=== PATIENT | male | born 1995 | race Caucasian/White ===

== ENCOUNTER 2017-03-01 06:57 | Emergency (ER) | payer OTHER ==
[~2017-03-01] VITALS: Ht 177.8 cm; Wt 86.4 kg
[2017-03-01 06:59] VITALS: BP 124/88; PULSE 70; RESP 16; O2SAT 99
--- NOTE | 2017-03-01 07:42 | ED.REPORT ---
HPI-General Illness Date of Service Mar 01, 2017 ED Provider: Pradip Lewis MD This is a 21-year-old male with no known past medical history presents to emergency department for foreign body and left upper extremity. Patient reports at 5 AM when using a hammer, the hammer exploded and pieces of metal flew into his left forearm. Patient tried to remove the metal however it was too deep and he had profuse bleeding which he controlled with gauze. Currently he is having a constant 5 out of 10 ache with tingling into his palm more along the pinky side. He has not tried anything to alleviate pain. He has some swelling, but no numbness or weakness associated with this. Nothing is making it worse. He denies any fevers, chills, nausea, vomiting or any other pains. His last tetanus he thinks might have been when he was 14, but he is uncertain. He is uncertain of the metal was rusted or not. Nursing Notes Stated Complaint: METAL IN ARM/WORK RELATED Chief Complaint: Extremity Trauma Nursing Notes Reviewed: Yes Allergies: Coded Allergies: morphine (Verified Allergy, Intermediate, vomited, 03/01/17) Scheduled Cephalexin (Keflex) 500 Mg Capsule 500 MG PO QID General Time Seen by MD: 07:06 Chief Complaint Other (left upper extremity foreign body) Past Medical History Past Medical History None reported Past Surgical History None reported Smoking History Never Smoker Social History Alcohol Use: "Social" Drug Use: Cocaine (stopped in 2015.) Other Social History: Local resident Ambulatory Status Independent Review of Systems Full Review of Systems Constitutional: Denies: Chills, Fever Respiratory: Denies: Shortness of breath Cardiovascular: Denies: Chest pain GI: Denies: Nausea, Vomiting Musculoskeletal: Reports: Extremity pain, Extremity swelling, Denies: Joint pain, Joint swelling Hematologic: Reports Bleeding Skin: Reports Swelling Neurologic: Denies: Numbness Complete sys rev & neg: except as marked. Physical Exam Vital Signs Vital Signs Date Time Temp Pulse Resp B/P Pulse Ox O2 Delivery O2 Flow Rate FiO2 03/01/17 10:50 55 12 134/80 100 Room Air 03/01/17 09:44 55 12 134/80 100 Room Air 03/01/17 06:59 36.9 70 16 124/88 99 Initial VS: Reviewed General/Constitutional: Well-developed, Well-nourished Head / Eyes: Atraumatic, Normocephalic ENT: Mucous membranes moist, Conjunctiva normal Respiratory: Breath sounds normal, Clear to auscultation, No respiratory distress Cardiovascular: Regular rate & rhythm, Heart sounds normal General/Constitutional: Awake, Alert, No acute distress, Well appearing, Well developed, Cooperative, Not toxic appearing Respiratory / Chest: Breath sounds NL, Breath sounds = bilat, No respiratory distress Cardiovascular: Heart rate NL, Regular rhythm, Heart sounds NL, No murmurs Upper Extremities Upper Extremity / MS: Full range of motion Left Forearm: Positive: Swelling present... (Moderate), Tenderness present... ( Mild) Localized swelling to the left forearm about 1.5-2 inches in diameter with tenderness and same area. Puncture wound at left forearm with dry blood. Swelling is about 1-1/2 inches in diameter around the puncture site. Neurologic: Oriented X3, Speech NL Fine touch intact throughout the left forearm. Motor strength is 5 out of 5 and equal to right upper extremity strength. Range of motion is normal. 2 point discrimination mildly decreased in left anterior forearm and palm when compared to right forearm. Psychiatric: Affect NL, Mood NL Interpretation & Diagnostics X-Ray Interpretation Xray Interpretation: PROCEDURE: X-RAY LEFT FOREARM, TWO VIEWS ([id number]) IMPRESSION: No acute fractures or dislocations. Two radiopaque foreign bodies in the soft tissues at the radial aspect of the proximal left forearm measuring up 6 mm. Re-Eval/Medical Decision Med Decision/Clinical Course This is a 21-year-old male with no known past medical history pertinent for foreign body in left upper extremity. Patient did report paresthesias along the ulnar aspect, but did not have any weakness. On exam there is noticeable swelling and a puncture wound. He does have loss of 2 point discrimination along the anterior aspect of the forearm as well as into the palm when compared with the right forearm. There is no weakness noticed. An x-ray there are two 6 mm radiopaque foreign bodies seen along the radial aspect of the forearm. After discussion with orthopedics the recommendation was to clean and bandage the wound with follow-up in the outpatient clinic, along with antibiotics. Instructions were given for when to return to the emergency department. Keflex was prescribed for 10 days. L&I form was filled out. Consultation : Referral / Consult Name: Hiram Xie DO Chalk Cutter: Will see in office Note: Orthopedics recommended clean and bandage the wound, give antibiotics and further evaluation in the outpatient clinic. Counseled Regarding: Lab results, Need for follow-up, When/why to return to ED Discharge & Departure Primary Impression: Foreign body in left forearm Encounter type: initial encounter Qualified Code: S50.852A - Superficial foreign body of left forearm, initial encounter Disposition: Home Discharge Condition All VS Reviewed: Yes Condition: Stable Patient Instructions: Soft Tissue Foreign Body (ED) Additional Instructions: After discussion with the orthopedics team, they want you to see them in their clinic. Give them a call to schedule an appointment. If you start to notice increased swelling, numbness, significant pain, fevers or chills, return to the emergency department. There does not seem to be any sign of infection at this time. You were given a tetanus shot while you were here. We have also given you antibiotics to prevent infection. Take Keflex, 4 times a day for 10 days. Referrals: NOPCP (PCP) Hiram Xie DO Attending Statement I saw and evaluated the patient with the resident. I agree with the plan and findings as documented above. copies to: Hiram Xie William B MD Mar 01, 2017 07:42 Todd Del Castillo DO Mar 01, 2017 08:38
--- NOTE | 2017-03-01 08:17 | DRSVH ---
PROCEDURE: X-RAY LEFT FOREARM, TWO VIEWS ([id number]) INDICATIONS: LEFT ARM INJURY; FOREIGN BODY TECHNIQUE: 2 views of the forearm were acquired. COMPARISON: None. FINDINGS: Bones: No fractures or dislocations. No suspicious bony lesions. Soft tissues: No suspicious soft tissue calcifications or masses. There are 2 radiopaque calcified foreign bodies in the proximal radial soft tissues of the left forearm measuring up to 6 mm. IMPRESSION: No acute fractures or dislocations. Two radiopaque foreign bodies in the soft tissues at the radial aspect of the proximal left forearm measuring up 6 mm. Dictated by: Get Reeder M.D. on 03/01/2017 at 8:14 Approved by: Get Reeder M.D. on 03/01/2017 at 8:16
[2017-03-01] MEDS ORDERED: Tetanus Immune Globulin 250 Unit/mL Inj IM ONE (09:15)
[2017-03-01] MEDS ORDERED: TdaP Vaccine 0.5 mL Inj IM ONE (09:15)
[2017-03-01 09:44] VITALS: BP 134/80; PULSE 55; RESP 12; O2SAT 100
[2017-03-01] MEDS ORDERED: CEPH-512 PO (10:32)
[2017-03-01 10:50] VITALS: BP 134/80; PULSE 55; RESP 12; O2SAT 100
[2017-03-04] MEDS ORDERED: CEPH-512 PO (15:44)
== END 2017-03-01 10:51 | disposition home or self-care (01) ==
LOC: SED 06:57
DX: S51.822A Laceration with foreign body of left forearm, initial encounter (principal); Z79.2 Long term (current) use of antibiotics; Z23 Encounter for immunization; W45.8XXA Other foreign body or object entering through skin, initial encounter; Y93.89 Activity, other specified; Y99.0 Civilian activity done for income or pay; Y92.69 Other specified industrial and construction area as the place of occurrence of the external cause; Z88.5 Allergy status to narcotic agent

== ENCOUNTER 2017-03-01 11:48 | Emergency (ER) | payer OTHER ==
[~2017-03-01] VITALS: Ht 177.8 cm; Wt 86.4 kg
[~2017-03-01 11:48] MED LIST: CEPH-512 PO
[2017-03-01 11:57] VITALS: BP 141/73; PULSE 65; RESP 18; O2SAT 98
[2017-03-01 13:38] LABS: BASOPHILS % (AUTO) 0.3 % (0-3); EOSINOPHILS % (AUTO) 1.2 % (0-5); MONOCYTES % (AUTO) 9.3 % (4-12); Mean Corpuscular Hemoglobin 29.9 pg (27.0-35.0); NEUTROPHILS % (AUTO) 67.1 % (40-74); Platelet Count 248 bil/L (150-400)
[2017-03-01 14:04] LABS: INR 1.14 ratio
--- NOTE | 2017-03-01 14:13 | ED.REPORT ---
HPI-Extremity Problem Upper Date of Service Mar 01, 2017 ED Provider: Pradip Lewis MD This is a 21-year-old male with no known past medical history who was just seen in the ED 1 hour prior for left upper extremity foreign body. Previous history of present illness pasted below. He was previously found to have a 6 mm radiopaque object 2 in his left radial aspect of his forearm and was discharged home, stable, with follow-up with orthopedics. Patient returns to the ED after increased swelling and pain to the left upper extremity. Pain is now 7 out of 10 constant ache with similar paresthesia along the ulnar aspect to the palm. He reports still having good strength and no numbness. He still has full range of motion of his elbow, wrist and fingers. He denies any other changes in symptoms. "This is a 21-year-old male with no known past medical history presents to emergency department for foreign body and left upper extremity. Patient reports at 5 AM when using a hammer, the hammer exploded and pieces of metal flew into his left forearm. Patient tried to remove the metal however it was too deep and he had profuse bleeding which he controlled with gauze. Currently he is having a constant 5 out of 10 ache with tingling into his palm more along the pinky side. He has not tried anything to alleviate pain. He has some swelling, but no numbness or weakness associated with this. Nothing is making it worse. He denies any fevers, chills, nausea, vomiting or any other pains. His last tetanus he thinks might have been when he was 14, but he is uncertain. He is uncertain of the metal was rusted or not." Nursing Notes Stated Complaint: METAL IN ARM Chief Complaint: Extremity Trauma Nursing Notes Reviewed: Yes Allergies: Coded Allergies: morphine (Verified Allergy, Intermediate, vomited, 03/01/17) Scheduled Cephalexin (Keflex) 500 Mg Capsule 500 MG PO QID General Time Seen by MD: 12:30 Chief Complaint Forearm injury left Past Medical History Past Medical History None reported Past Surgical History None reported Smoking History Never Smoker Social History Alcohol Use: "Social" Drug Use: Cocaine Other Social History: Local resident Ambulatory Status Independent Review of Systems Basic Review of Systems Eyes: Vision NL ENT: Hearing NL Respiratory: No shortness of breath, No cough Cardiovascular: No chest pain GI: No abdominal pain, No nausea, No vomiting Hematologic: No bleeding (no new bleeding) Psychiatric: Normal thought content Constitutional: Denies: Chills, Fever Musculoskeletal: Reports: Extremity pain (increased), Extremity swelling ( increased) Skin: Reports Swelling Complete sys rev & neg: except as marked. Physical Exam Initial Vital Signs Vital Signs (First) Date Time Temp Pulse Resp B/P Pulse Ox O2 Delivery O2 Flow Rate FiO2 03/01/17 11:57 37.2 65 18 141/73 98 Room Air Initial VS: Reviewed General/Constitutional: Well-developed, Well-nourished Head / Eyes: Atraumatic, Normocephalic ENT: Mucous membranes moist, Conjunctiva normal Respiratory: Breath sounds normal, Clear to auscultation, No respiratory distress Cardiovascular: Regular rate & rhythm, Heart sounds normal, Intact distal pulses Lower Extremities: Vascular intact, Neuro intact, No swelling, No tenderness Skin: Warm, Dry Neurologic: Alert, Oriented Psychiatric: Mood/affect normal, Behavior normal, Normal thought content There is noticeable increase in swelling, more protuberant, around puncture site. There is no active bleed. Patient still has tenderness to palpation at puncture site. Sensory intact. Capillary refill intact. Patient still has full range of motion. Upper extremities strength 5 out of 5. Interpretation & Diagnostics Lab Results Interpretation Result Diagram: 03/01/17 1330 03/01/17 1330 Test 03/01/17 13:30 White Blood Count 6.9th/mm3 (3.8-10.1) Red Blood Count 5.01mil/mm3 (4.40-5.80) Hemoglobin 15.0g/dL (13.8-17.2) Hematocrit 42.6% (41.0-50.0) Mean Corpuscular Volume 85.0fL (81-100) Mean Corpuscular Hemoglobin 29.9pg (27.0-35.0) Mean Corpuscular Hemoglobin Concent 35.2% (32.0-37.0) Red Cell Distribution Width 13.9% (12.3-15.4) Platelet Count 248bil/L (150-400) Neutrophils (%) (Auto) 67.1% (40-74) Lymphocytes (%) (Auto) 22.0% (14-46) Monocytes (%) (Auto) 9.3% (4-12) Eosinophils (%) (Auto) 1.2% (0-5) Basophils (%) (Auto) 0.3% (0-3) Prothrombin Time 12.2sec (8.1-12.5) Prothromb Time International Ratio 1.14ratio Sodium Level 141mEq/L (134-144) Potassium Level 3.8mEq/L (3.5-5.2) Chloride Level 103mEq/L (97-108) Carbon Dioxide Level 25mmol/L (18-29) Blood Urea Nitrogen 12mg/dL (6-20) Creatinine 0.96mg/dL (0.76-1.27) Estimat Glomerular Filtration Rate 103mL/min (>59) Glucose Level 102mg/dL (60-99) Calcium Level 9.2mg/dL (8.5-10.1) Total Bilirubin 0.6mg/dL (0.0-1.2) Aspartate Amino Transf (AST/SGOT) 31U/L (0-50) Alanine Aminotransferase (ALT/SGPT) 33U/L (0-44) Alkaline Phosphatase 50U/L (25-150) Total Protein 7.0g/dL (6.4-8.4) Albumin 4.6g/dL (3.4-5.0) Re-Eval/Medical Decision Med Decision/Clinical Course This is a 21-year-old male with no known past medical history presents to the emergency department for left upper extremity swelling. Patient was discharged just earlier today for the same with two, 6 mm radiopaque foreign objects and left radial aspect of forearm. He does have increase in swelling, but there is no neurologic deficit noticed. Dr. Xie from orthopedics did see the patient and recommended to see Dr. Phoenix Maria for follow-up. He did not see it necessary for immediate removal of foreign object. Recommendation, posterior splint was applied. Patient was instructed on when to return to the emergency department. Source of Hx: Old records Consultation : Referral / Consult Name: Hiram Xie DO Consulted With: Orthopedic Note: Dr. Xie came and examined patient and did not see any need for urgent surgery. Recommend seeing a hand surgeon Dr. Phoenix Maria later this week for further evaluation. He did recommend putting a posterior splint, so patient did not continuously pick at puncture site. Counseled Regarding: Diagnosis, Lab results, Need for follow-up, When/why to return to ED Discharge & Departure Impression: Primary Impression: Foreign body in left forearm Encounter type: subsequent encounter Qualified Code: S50.852D - Superficial foreign body of left forearm, subsequent encounter Disposition: Home Discharge Condition All VS Reviewed: Yes Condition: Stable Patient Instructions: Splint Care (ED) Additional Instructions: At this time there is no urgent need for an operation. As explained by the orthopedic surgeon, doing an operation may make things worse. Avoid activity with her left arm. Follow up with Dr. Phoenix Maria. During this visit you did have blood that was drawn that did not show any signs of infection or electrolyte abnormalities. Return to the emergency department if you start to develop numbness and weakness in you left forearm. Referrals: NOPCP (PCP) Phoenix Maria MD Attending Statement I saw and evaluated the patient in conjunction with the resident. I agree with the findings and plan as documented above. No signs of compartment syndrome. Appreciate orthopedics recommendations. Patient is well-appearing with a reassuring examination. Plan discharge home with very careful return precautions, follow-up this week. Patient agreeable to the plan as stated, no further questions. copies to: Phoenix Maria MD, Malik A DO Mar 01, 2017 14:13 Pradip Lewis MD Mar 01, 2017 17:18
[2017-03-01 15:51] VITALS: BP 141/73; PULSE 65; RESP 18; O2SAT 98
--- NOTE | 2017-03-01 17:36 | CONS ---
[address] [address] CONSULTATION REPORT PATIENT: JANICE SANABRIA : 1995 MR#: [id number] ADMIT: 03/01/2017 JOB ID: [id number] DATE OF SERVICE: 03/01/2017 CHIEF COMPLAINT: Left forearm injury. HISTORY OF PRESENT ILLNESS: The patient is a 21-year-old male who was working with a hammer, striking a trailer, when a portion of the hammer broke and impaled itself into his left forearm. He is right-hand dominant. He had onset of pain and swelling and presented to the emergency department was concerned by this. He felt that he had some paresthesias over his forearm and that he had some increased swelling which was concerning to him. PHYSICAL EXAMINATION: On exam, his left elbow has a full range of motion. He has full range of motion throughout his hand. He has no pain with passive range of motion. He has good strength intact in the median, radial, and ulnar nerve distributions and has some subjective paresthesia around the left forearm puncture wounds. There are two puncture wounds about 3-4 mm in size over his mobile wad in the radial proximal forearm. His radial pulse is +2 and brachial pulses +2. X-rays demonstrate foreign bodies in the soft tissues in the left proximal forearm on the radial aspect. ASSESSMENT: Left proximal forearm foreign bodies. PLAN: We discussed treatment options. The patient is quite eager to have these removed, however, recommended that he receive antibiotics which he did, ice and elevate and maintain compression on this to help control swelling and then follow up in the clinic in another couple of days. I discussed that this may or may not be symptomatic and that it may or may not need to be removed and that it can be done in a nonemergent fashion. The patient understood this and will follow up in the clinic in the next couple of days.
[2017-03-04] MEDS ORDERED: CEPH-512 PO (15:44)
== END 2017-03-01 15:52 | disposition home or self-care (01) ==
LOC: SED 11:48
DX: S50.852A Superficial foreign body of left forearm, initial encounter (principal); W45.8XXA Other foreign body or object entering through skin, initial encounter; Y93.89 Activity, other specified; Y92.019 Unspecified place in single-family (private) house as the place of occurrence of the external cause; Y99.8 Other external cause status; Z88.5 Allergy status to narcotic agent

== ENCOUNTER → 2017-03-11 | Day surgery (SDC) | payer OTHER ==
[~2017-03-11] VITALS: Ht 180.3 cm; Wt 83.8 kg
[~2017-03-11] MED LIST changes: +CeFAZolin 2 Gm/50 mL D5W Duplex Bag IV ONE; +CeFAZolin 2 Gm/50 mL D5W IV Premix IV ONE; +Lactated Ringer's 1,000 ML IV ONE; +Lactated Ringer's 1,000 ML IV SCH
== END | disposition home or self-care (01) ==
LOC: SAS 14:59
PROVIDERS: ATTEND Orthopaedic Surgery
DX: S50.852A Superficial foreign body of left forearm, initial encounter (principal); X58.XXXA Exposure to other specified factors, initial encounter; Y92.9 Unspecified place or not applicable; Y99.9 Unspecified external cause status; Y93.9 Activity, unspecified

== ENCOUNTER → 2017-03-18 | Day surgery (SDC) | payer OTHER ==
[~2017-03-18] VITALS: Ht 180.3 cm; Wt 84.7 kg
[~2017-03-18] MED LIST changes: -CeFAZolin 2 Gm/50 mL D5W IV Premix IV ONE; +CeFAZolin Inj 2 GM in IV Premix 1 EACH IV ONE; +Clindamycin 600 mg/50 mL D5W Premix IV ONE; +Dexamethasone 4 mg/mL Inj IVPUSH PRN; +Dexamethasone 4 mg/mL Inj ONE; +EPHEDrine Sulfate 50 mg/mL Inj IVPUSH PRN; +HYDROcodone-APAP 5-325 mg Tablet PO PRN; +Ketamine 10 mg/mL 20 mL Inj ONE; -Lactated Ringer's 1,000 ML IV ONE; +Lactated Ringer's 500 ML IV PRN; +Lidocaine 1%-Epi 1:100,000 20 mL Inj NERVEBLOCK ONE; +MetoCLOpramide 5 mg/mL 2 mL Inj IVPUSH PRN; +Ondansetron 2 mg/mL 2 mL Inj IVPUSH PRN; +Ondansetron 2 mg/mL 2 mL Inj ONE; +Phenylephrine 10,000 mCg/mL Inj IVPUSH PRN; +fentaNYL-PF 50 mCg/mL 2 mL Inj IVPUSH PRN; +fentaNYL-PF 50 mCg/mL 2 mL Inj ONE
--- NOTE | 2017-03-18 08:22 | PCM.HPANE ---
Patient Data Surgeon Admitting Provider: Attending Provider:Oscar Stone DO Primary Care Physician:Nopcp Other Provider: Reason for Visit Foreign Body Left Forearm Ht/WT & BMI Height (Feet): 5 Height (Inches): 11 Weight (Kilograms): 86.18 Body Mass Index 26.00 Allergies Coded Allergies: hydromorphone (Verified Adverse Reaction, Severe, N&V, 03/18/17) morphine (Verified Adverse Reaction, Severe, N&V, 03/18/17) Past Anesthesia History Anesthesia History: Denies:: Abnormal Airway, Anesthesia Reactions (no prior surgery), Difficult Intubation, Fam Anesthesia Reaction, Fam Malignant Hypertherm Diabetes History Hx Diabetes?: No MRSA MRSA: Yes (side of right arm, 2010) Medications Hypertension Medication: No Home Meds Incl Beta Nydia: No Reported Medications Cephalexin (Keflex)500 Mg [id number] Mg PO TID #40 CAPSULE Ref 0 03/04/17 History History of ENT Problems?: No HEENT History: Denies:: Abnormal Airway Cataracts Difficult Intubation Dysphagia Glaucoma Hearing Problem Sinus Problem TMJ Denture Type: None Teeth Condition: Within Normal Limits Hx of Heart Problems?: No Cardiovascular History: Denies:: AICD Abdominal Aortic Aneurism Atrial Fibrillation Congestive Heart Failure Heart Murmur Hypertension Irregular Heartbeat Pacemaker Peripheral Vascular Rheumatic Fever Hx of Respiratory Problem?: No Respiratory History: Denies:: Asthma COPD Emphysema Oxygen Administration Pneumonia Tuberculosis Use of C-PAP Machine Hx Neurologic Problems?: No Neurological History: Denies:: CVA Headaches Multiple Sclerosis Parkinson's Disease Seizures Hx of GI Problems?: No Hx of Problems?: No Genitourinary History: Denies:: Kidney Stones Urinary Tract Infection HX of Peritoneal Dialysis: No Male Hx: Denies:: Prostate Problems Scrotal Mass Testicular Surgery Skin History: Denies:: History Skin Disorders? Pressure Ulcers Hx Musculoskeletal Problems?: Yes Musculoskeletal History: Positive for:: Musculoskeletal Trauma (FB (METAL X2) LT FOREARM=CURRENT PROBLEM) Denies:: Back Injury Degenerative Joint Fibromyalgia Joint Replacement Myasthenia Gravis Osteoarthritis Systemic Lupus Hx of Psycho/Social Problems?: No Psycho Social History: Denies:: Anxiety Hx Depression Hx Surgeries?: No (forehead cyst (under local)) Hx Any Other Health Problems?: Yes Other History: Denies:: Cancer Endocrine Disease Hospitalization Thyroid Disease History Blood Transfusions: Positive for:: Accept Blood Products? Denies:: Blood Transfusions Hx Diabetes: No Hx Alcohol Use: YesAlcoholic Drinks Per Day: 5-6 beers weekHx Substance Use: Yes (monthly use marijuana - inhale, prior use cocaine not for last 2 years) Smoking Status: Never Smoker Have You Smoked inLast 12 mo: No Stop/Bang Treated for Sleep Apnea?: No Do You Have a CPAP Machine?: No S-Snoring: Do You Snore Loudly: No T-Tired: feel tired, fatigued: No O-Obsered: Observed not breath: No P-Blood Pressure: treated: No B- Body Mass Index > 35 kg/m2: No A- Age over 50: No N- Neck Large Circumference: No G- Gender Male: Yes MELANIE Total Score: 1 MELANIE Risk Assessment: Low Risk, <3 Yes Risk Assessment Category Category 1A: Patient has history of documented sleep apnea, and HAS NOT received any narcotic, sedative or anesthesia administration during this stay. Category 1B: Patient has history of documented sleep apnea, and HAS received any narcotic , sedative or anesthesia administration during this stay Category 2: Patient has SUSPECTED Obstructive Sleep Apnea, and HAS received any narcotic , sedative or anesthesia administration during this stay. Category 3: Patient has SUSPECTED Obstructive Sleep Apnea and HAS NOT received narcotic, sedative or anesthesia administration during this stay. Category 4: Outpatient in Procedural Areas with known sleep apnea or who screen positive for High Risk via the STOP/BANG questionnaire. Exam Exam General Appearance: Alert, Oriented X3, Cooperative, No Acute Distress HEENT/AIRWAY: MP 2 Lungs: Clear to Auscultation, Normal Air Movement Heart: Exam Unremarkable, Regular Rate/Rhythm, No Murmurs/Rubs/Gallops Plan Impression Patient chart reviewed, patient interviewed and anesthestic plan with risks, benefits, and alternatives discussed, and informed consent obtained. NPO per Anesth. Guidelines: Yes ASA Physical Status: ASA1 Normal Healthy Anesthetic Plan: GA Bene/Risks/Altern/Consents: Yes HP Complete Prior to Induction: Yes Wes Hernandez MD Mar 18, 2017 08:22
[2017-03-18 12:06] VITALS: BP 132/86; PULSE 73; RESP 16; O2SAT 97
[2017-03-18] MEDS: Lactated Ringer's 1,000 ML IV SCH ×2 (12:22→15:46)
[2017-03-18 16:35] VITALS: BP 121/57; PULSE 79; RESP 13; O2SAT 96
[2017-03-18 16:40] VITALS: BP 106/50; PULSE 82; RESP 16; O2SAT 95
[2017-03-18 16:45] VITALS: BP 116/60; PULSE 90; RESP 16; O2SAT 97
[2017-03-18 17:05] VITALS: BP 125/64; PULSE 92; RESP 16; O2SAT 98
--- NOTE | 2017-03-18 17:13 | PCM.ANEP1 ---
Post Anesthesia PACU Phase 1 Assessment Vital Signs Vital Signs Date Time Temp Pulse Resp B/P Pulse Ox O2 Delivery O2 Flow Rate FiO2 03/18/17 17:05 92 16 125/64 98 Room Air 03/18/17 16:45 90 16 116/60 97 Room Air 03/18/17 16:40 82 16 106/50 95 Room Air 03/18/17 16:35 36.6 79 13 121/57 96 Room Air 03/18/17 12:06 36.5 73 16 132/86 97 Room Air Anesthetic Administered: GA Level of Alertness: Awake, talking JOHNSON's with Equal Strength: Yes Pain: No Nausea or Vomiting: No CV Function & Hydration Stable: Yes Airway Device: Oxygen Delivery: Nasal Cannula Lungs: Clear to Auscultation, Normal Air Movement Dermatome Level: Full Sensation PACU Phase 2 Assessment Complications: No Follow up Care: No Patient Instructions Provided: N/A Wes Hernandez MD Mar 18, 2017 17:13
--- NOTE | 2017-03-19 19:02 | OP ---
[address] [address] OPERATIVE REPORT PATIENT: JANICE SANABRIA : 1995 MR#: [id number] ADMIT: 03/18/2017 JOB ID: [id number] DATE OF SURGERY: 03/18/2017 PREOPERATIVE DIAGNOSIS(ES): Left proximal forearm deep foreign body. POSTOPERATIVE DIAGNOSIS(ES): Left proximal forearm deep foreign body. PROCEDURE: Excision of left proximal forearm deep foreign body. SURGEON: Oscar Stone D.O. ANESTHESIA: General. HISTORY: The patient is a pleasant 21-year-old male that presented originally to one of my partners, Dr. Phoenix Maria, after sustaining an injury to his left proximal forearm. He was hammering when the hammer exploded and a shard of the hammer embedded in his proximal forearm. He continued to have pain and irritation overlying this area and originally was scheduled to have the foreign body removed which was identified on plain radiographs as well CT by Dr. Maria. The first was delayed as the patient ate prior to his surgery. The second surgery the patient was scheduled to have this done late and given the option instead to have me perform the surgery. I have met him in the preoperative suite and discussed the risks, benefits, alternatives, and indications for the foreign body removal. He understood the risks include, but are not limited to, neurovascular injury, tendon injury, infection, stiffness, persistent pain all of which may require further intervention. The patient had all questions answered. The consent originally was signed by Dr. Maria and re-signed to include myself as I was taking over care of the patient. Again, the patient had all questions answered. Consent was signed and placed in the chart. PROCEDURE IN DETAIL: The patient was brought to the operative suite and placed supine on the operating room table. Surgical time-out was performed. Everyone in the room was in agreement. After appropriate anesthesia was obtained, a left upper arm tourniquet was applied and the left upper extremity was prepped and draped in sterile fashion. The left upper extremity was then exsanguinated and the tourniquet inflated to 250 mmHg. The position of the foreign body was identified utilizing fluoroscopy. A longitudinal incision was made directly overlying the foreign body. Dissection was carried down to the overlying fascia of the proximal extensor musculature. The fascia was then incised dissection was carried deep through the forearm and wrist extensors. The foreign body was then identified and removed in its entirety. Copious irrigation was then performed. Final radiographs were obtained to verify that the metallic foreign body had been fully removed. The operative site was then closed with 4-0 Vicryl followed by a running 4-0 Monocryl. Steri-Strips were then applied and the patient placed in a bulky soft dressing. ESTIMATED BLOOD LOSS: Less than 1 mL. COMPLICATIONS: None. DISPOSITION: The patient tolerated the procedure well. Anesthesia was reversed. The patient was transferred to the PACU for recovery. SPECIMENS: Metallic foreign body measuring approximately 0.5 cm in diameter. POSTOPERATIVE PLAN: The patient will follow up in the office in two weeks for a wound recheck and start working on range of motion and scar mobilization.
== END | disposition home or self-care (01) ==
LOC: SAS 11:51
PROVIDERS: ATTEND Orthopaedic Surgery
DX: S50.852A Superficial foreign body of left forearm, initial encounter (principal); W45.8XXA Other foreign body or object entering through skin, initial encounter; W27.8XXA Contact with other nonpowered hand tool, initial encounter; Y93.89 Activity, other specified; Y92.69 Other specified industrial and construction area as the place of occurrence of the external cause; Y99.0 Civilian activity done for income or pay; Z72.0 Tobacco use; Z86.14 Personal history of Methicillin resistant Staphylococcus aureus infection
CPT/HCPCS: 25248; 76000; J0690; J1100; J2405; J3010; J7120